=== PATIENT | female | born 1945 | race Caucasian/White ===

== ENCOUNTER 2019-03-26 09:03 | Inpatient (IN) | payer MEDICARE, OTHER ==
[~2019-03-26] VITALS: Ht 157.5 cm; Wt 79.8 kg
--- NOTE | 2019-03-26 11:00 | NUR ---
PT ARRIVED AT APPROXIMATELY 1045 A DIRECT ADMIT. A&O X4, VSS, RA, UP AD IKER. RIGHT CALF SWOLLEN, RED, AND WARM TO TOUCH, BILATERAL PEDAL PULSES NORMAL, DENIES ANY PAIN AT THIS TIME. PT ORIENTED TO CALL LIGHT AND ROOM.
[2019-03-26 11:43] LABS: ABSOLUTE BASOPHILS 0.1 thou/uL (0.0-0.2); ABSOLUTE EOSINOPHILS 0.2 thou/uL (0.0-0.7); ABSOLUTE LYMPHOCYTES 2.4 thou/uL (0.8-5.3); ABSOLUTE MONOCYTES 0.7 thou/uL (0.0-1.2); ABSOLUTE NEUTROPHILS 5.5 thou/uL (1.6-8.1); BASOPHILS 1.1 %; EOSINOPHILS 2.6 %; HEMATOCRIT 42.9 % (37.0-47.0); HEMOGLOBIN 14.4 gm/dL (12.0-15.0); MCH 28.9 pg (26.0-34.0); MCHC 33.5 g/dL (28.0-37.0); MCV 86.3 fL (80.0-100.0); MONOCYTES 7.9 %; MPV 10.6 fl. (7.2-11.1); NUCLEATED RBCS 0 /100WBC; PLATELET COUNT* 111 thou/uL (150-400); POLYS 61.4 %; RBC 4.97 mil/uL (4.20-5.00); RDW-CV 13.2 % (10.5-14.5); WBC 8.9 thou/uL (4.0-11.0)
[2019-03-26 11:54] LABS: ALBUMIN 3.6 g/dL (3.4-5.0); CALCIUM 8.6 mg/dL (8.5-10.1); CREATININE 0.8 mg/dL (0.6-1.3); POTASSIUM 3.7 mmol/L (3.5-5.1); TOTAL BILIRUBIN 0.3 mg/dL (<0.1-1.0); TOTAL PROTEIN 7.1 g/dL (6.4-8.2)
[2019-03-26 12:01] LABS: APTT 26.1 Seconds (25.0-31.3); INR 1.1; PROTIME 11.6 Seconds (9.20-11.50)
--- NOTE | 2019-03-26 14:32 | NUR ---
WAS ASKED TO CHECK COST OF ELIQUIS 10MG BID X7 DAYS AND THEN 5MG BID X12 WKS BY DR OROZCO, CALLED INTO [facility] ON [address], [facility] VMAIL WITH PHARMACY [phone]
[2019-03-26 20:00] VITALS: BP 94/58
[2019-03-27] VITALS: BP 81/53
[2019-03-27 04:00] VITALS: BP 109/67
--- NOTE | 2019-03-27 07:50 | NUR ---
PT GIVEN TYLENOL X 1 FOR LOW GRADE TEMP 99.9. RESOLVED. DENIED ANY PAIN W DVT EXCEPT WITH AMBULATION. SR ON MONITOR. CALL LIGHT IN REACH. HOURLY ROUNDING FOR SAFETY.
[2019-03-27 08:00] VITALS: BP 144/84
[2019-03-27] MEDS ORDERED: OMEPRAZOLE40 MG PO (09:49)
[2019-03-27] MEDS ORDERED: ARIMIDEX PO (09:50)
[2019-03-27] MEDS ORDERED: RANITIDINE HCL300 MG PO (09:50)
--- NOTE | 2019-03-27 10:05 | NUR ---
cm provided pt w/Eliquis medication card. pt present to take pt home. pt denies any other needs at this time.
[2019-03-27 10:06] VITALS: BP 144/84
[2019-03-27] MEDS ORDERED: ELIQUIS5 MG PO (10:07)
--- NOTE | 2019-03-27 10:58 | NUR ---
ASSUSSMED CARE OF PT APPROX 0730. REASSESSMENT COMPLETED CHARTED. MEDICATIONS GIVEN CHARTED. SAFTEY PRECAUTIONS UTILIZED. PT NEEDS MET. HOURLY ROUNDED FOR SAFTEY. PT DISCHARGE TEACHING COMPLETED. PT VERBALIZED UNDERSTANDING. PT ESCORTED BY STAFF TO VEHICLE APPROX 1058.
== END 2019-03-27 10:58 | disposition home or self-care (01) | DRG 300 ==
LOC: M.ULTRA 09:03 → M.2W 10:25
PROVIDERS: ADMIT Internal Medicine
DX: I82.431 Acute embolism and thrombosis of right popliteal vein (principal); D68.69 Other thrombophilia; I82.451 Acute embolism and thrombosis of right peroneal vein; I82.411 Acute embolism and thrombosis of right femoral vein; Z88.6 Allergy status to analgesic agent; Z79.899 Other long term (current) drug therapy